=== PATIENT | female | born 1995 | race Caucasian/White ===

== ENCOUNTER 2022-03-07 08:52 | Outpatient (CLI) | payer BC, SELFPAY ==
[2022-03-10 23:18] LABS: Adenovirus PCR Not Detected; Astrovirus PCR Not Detected; Campylobacter PCR Not Detected; Cdiff Toxin A/B PCR Not Detected; Cryptosporidium PCR Not Detected; Cyclospora cayetanensis PCR Not Detected; Entamoeba histolytica PCR Not Detected; Enteroaggregative E coli PCR Not Detected; Enteropathogenic E coli PCR Not Detected; Enterotoxigenic E coli PCR Not Detected; Giardia lamblia PCR Not Detected; Norovirus Gi/GII PCR Not Detected; Plesiomonas shig PCR Not Detected; Rotavirus A PCR Not Detected; Salmonella PCR Not Detected; Sapovirus PCR Not Detected; Shiga toxin E coli PCR Not Detected; Shigella/Enteroinvasive E coli Not Detected; Vibrio PCR Not Detected; Vibrio cholerae PCR Not Detected; Yersinia enterocolitica PCR Not Detected
== END 2022-03-07 08:53 | disposition home or self-care (01) ==
LOC: FRMREF 16:03
PROVIDERS: PCP Family Medicine; Visit Provider Family Medicine
DX: K92.1 Melena (principal)
CPT/HCPCS: 87505

== ENCOUNTER 2022-03-28 14:50 | Outpatient (CLI) | payer BC, SELFPAY ==
[2022-03-28 21:56] LABS: Albumin* 4.4 g/dL (3.3-5.0); Chloride* 105 mmol/L (96-114)
[2022-03-28 21:57] LABS: Sodium* 137 mmol/L (135-149)
[2022-03-28 21:59] LABS: Alanine Aminotransferase* 17 U/L (4-35); Alkaline Phosphatase* 79 U/L (40-150); Aspartate Amino Transferase* 20 U/L (12-35); Bilirubin Total* 0.3 mg/dL (0.1-1.5); Blood Urea Nitrogen* 6 mg/dL (5-24); Carbon Dioxide* 23 mmol/L (20-32); Cholesterol* 168 mg/dL (90-199); Creatinine* 0.6 mg/dL (0.5-1.5); Estimated Glomerular Filt Rate 125 ml/min; Glucose* 91 mg/dL (60-115); Total Protein* 6.6 g/dL (6.0-8.3); Triglycerides* 98 mg/dL (40-149)
[2022-03-28 22:00] LABS: Calcium* 9.4 mg/dL (8.4-10.6); HDL Cholesterol* 39 mg/dL (>=50); LDL Cholesterol Calculated 109 mg/dL (<100)
== END 2022-03-28 14:51 | disposition home or self-care (01) ==
PROVIDERS: PCP Family Medicine; Visit Provider Family Medicine
DX: E66.9 Obesity, unspecified (principal); N94.6 Dysmenorrhea, unspecified; R19.7 Diarrhea, unspecified; R53.83 Other fatigue; Z13.1 Encounter for screening for diabetes mellitus; Z13.6 Encounter for screening for cardiovascular disorders
CPT/HCPCS: 80053; 80061; 84443

== ENCOUNTER 2023-10-12 10:26 | Outpatient (CLI) | payer BC, SELFPAY | END 2023-10-12 10:27 | disposition home or self-care (01) | PROVIDERS: PCP Family Medicine; Visit Provider Physician Assistant Medical | DX: Z13.228 Encounter for screening for other metabolic disorders (principal); Z13.220 Encounter for screening for lipoid disorders; Z13.29 Encounter for screening for other suspected endocrine disorder | CPT/HCPCS: 80053; 80061; 84443 ==